=== PATIENT | male | born 1975 | race Caucasian/White ===

== ENCOUNTER 2024-01-13 09:12 | Day surgery (SDC) | payer BC ==
[2024-01-09 11:08] VITALS: BMI 26.6
[2024-01-13 10:24] VITALS: RESP 16; TEMP 97.5
[2024-01-13 10:57] VITALS: BP 109/59; PULSE 68
== END 2024-01-13 10:52 | disposition home or self-care (01) ==
LOC: FASU-ENDO 09:12
PROVIDERS: ATTEND Internal Medicine Gastroenterology
PROC: 0DJD8ZZ Inspection of Lower Intestinal Tract, Via Natural or Artificial Opening Endoscopic (ICD-10-PCS; principal; 2024-01-13 09:59)
DX: Z12.11 Encounter for screening for malignant neoplasm of colon (principal); Z83.719 Family history of colon polyps, unspecified